=== PATIENT | male | born 1990 | race Two or more races ===

== ENCOUNTER 2017-04-03 03:11 | Emergency (ER) | payer BC ==
[~2017-04-03] VITALS: Ht 170.2 cm; Wt 68.9 kg
[2017-04-03] MEDS ORDERED: KETOROLAC TROMETHAMINE 60 MG/2 ML INJ. IM ONE (04:15)
[2017-04-03 04:30] VITALS: BP 127/71
--- NOTE | 2017-04-03 04:37 | PHYS DOC ---
Past Medical History Past Medical History: No Pertinent History Past Surgical History: No Surgical History Alcohol Use: Occasionally Drug Use: None Adult General Chief Complaint Chief Complaint: CHEST PAIN HPI HPI 26 yo male presenting with some mild substernal chest pain that he noted after getting into an argument with a significant other. He states he has had one other episode like this recently that fully resolved. He denies any history of premature cardiac in his family. He is a smoker but denies any other health problems. Currently he states his pain has improved significantly upon arrival. He does not appear to be any acute distress upon initial presentation. Review of Systems Review of Systems Constitutional: Denies fever or chills [] Eyes: Denies change in visual acuity, redness, or eye pain [] HENT: Denies nasal congestion or sore throat [] Respiratory: Denies cough or shortness of breath [] Cardiovascular: No additional information not addressed in HPI [] GI: Denies abdominal pain, nausea, vomiting, bloody stools or diarrhea [] : Denies dysuria or hematuria [] Musculoskeletal: Denies back pain or joint pain [] Integument: Denies rash or skin lesions [] Neurologic: Denies headache, focal weakness or sensory changes [] Endocrine: Denies polyuria or polydipsia [] Current Medications Current Medications Current Medications Medications (Trade) Dose Ordered Sig/[facility] Start Time Stop Time Status Last Admin Dose Admin Ketorolac Tromethamine (Toradol Im) 60 mg 1X ONCE 04/03/17 04:15 04/03/17 04:16 DC 04/03/17 04:14 60 MG Allergies Allergies Allergies Coded Allergies Type Severity Reaction Last Updated Verified No Known Drug Allergies 04/03/17 No Physical Exam Physical Exam Constitutional: Well developed, well nourished, no acute distress, non-toxic appearance. [] HENT: Normocephalic, atraumatic, bilateral external ears normal, oropharynx moist, no oral exudates, nose normal. [] Eyes: PERRLA, EOMI, conjunctiva normal, no discharge. [] Neck: Normal range of motion, no tenderness, supple, no stridor. [] Cardiovascular:Heart rate regular rhythm, no murmur [] Lungs & Thorax: Bilateral breath sounds clear to auscultation [] Abdomen: Bowel sounds normal, soft, no tenderness, no masses, no pulsatile masses. [] Skin: Warm, dry, no erythema, no rash. [] Back: No tenderness, no CVA tenderness. [] Extremities: No tenderness, no cyanosis, no clubbing, ROM intact, no edema. [] Neurologic: Alert and oriented X 3, normal motor function, normal sensory function, no focal deficits noted. [] Psychologic: Affect normal, judgement normal, mood normal. [] Current Patient Data Vital Signs Vital Signs Date Time Temp Pulse Resp B/P (MAP) Pulse Ox O2 Delivery O2 Flow Rate FiO2 04/03/17 04:30 60 127/71 (89) 97 Room Air 04/03/17 03:17 98.3 20 98.3 Lab Values Laboratory Tests Test 04/03/17 03:40 Troponin I Quantitative < 0.017 ng/mL (0.000-0.055) EKG EKG EKG as interpreted by me shows sinus rhythm with a rate of 69 bpm. There is no acute injury pattern seen. Intervals are normal. Radiology/Procedures Radiology/Procedures Indication: Chest pain. Time of exam 0330 hours. FINDINGS: The heart size is normal. The lungs are clear. No pleural effusion or pneumothorax is identified. The pulmonary vascularity is normal. IMPRESSION: No acute abnormality detected. Course & Med Decision Making Course & Med Decision Making Pertinent Labs and Imaging studies reviewed. (See chart for details) 26 yo male who presents with chest pain had a negative EKG, chest film, and a negative set of cardiac enzymes. I deem him to be low risk for cardiac disease with a BRYAN score of 0. Return precautions were provided and I counseled the patient to follow closely with his primary care doctor in the next several days and to abstain from smoking. Dragon Disclaimer Dragon Disclaimer This electronic medical record was generated, in whole or in part, using a voice recognition dictation system. Departure Departure Impression: Primary Impression: Chest pain Disposition: 01 HOME, SELF-CARE Admitting Physician: Other Condition: STABLE Patient Instructions: Chest Pain (Nonspecific), [id number] Additional Instructions: Please follow up with your primary doctor in the next 2-3 days regarding your chest pain. Return to the ER if you develop any worsening of your symptoms. HERNANDEZ RODRÍGUEZ DO Apr 03, 2017 04:37
--- NOTE | 2017-04-03 07:32 | RAD ---
Indication: Chest pain. Time of exam 0330 hours. FINDINGS: The heart size is normal. The lungs are clear. No pleural effusion or pneumothorax is identified. The pulmonary vascularity is normal. IMPRESSION: No acute abnormality detected.
--- NOTE | 2017-04-03 11:29 | EKG ---
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
== END 2017-04-03 04:47 | disposition home or self-care (01) ==
LOC: ER 03:11
DX: R07.2 Precordial pain (principal); F17.200 Nicotine dependence, unspecified, uncomplicated
CPT/HCPCS: 36415; 71010; 84484; 93005; 96372; 99285; J1885

== ENCOUNTER 2017-05-16 23:15 | Emergency (ER) | payer BC ==
[~2017-05-16] VITALS: Ht 170.2 cm; Wt 68.9 kg
[2017-05-16 23:28] VITALS: BP 136/95
--- NOTE | 2017-05-17 00:12 | ED.ADGEN ---
Past Medical History Past Medical History: Hypertension Past Surgical History: No Surgical History Alcohol Use: Sober Drug Use: None Adult General Chief Complaint Chief Complaint: HEADACHE HPI HPI Patient is a 26 year old man, history of hypertension, was previously prescribed lisinopril, who presents to the emergency department with a complaint of insomnia and anxiety. Patient states that he was seen at a clinic last month, that time he was prescribed antihypertensive medication. He states blood pressure had been 170s over 1 teens at that time, and he was prescribed once daily lisinopril. He states he does not have a doctor, but he was set up to see a early education teacher, states his appointment is tomorrow morning. Patient states that he tried become healthier after this diagnosis, that he started exercising, and he quit drinking and smoking marijuana 3 weeks ago. Patient states he had been drinking about a 6 pack to a 12 pack of beer daily. He states that he did not have any complications when he stopped drinking and smoking. He states however over the past several weeks he has been feeling "anxious", he states that he initially thought it might be due to lisinopril, any stopped taking lisinopril about a week ago, states that he would feel "good when I woke up in the morning, but started to feel depressed once I started looking outside". He states he thought it might be the medication causing these issues, "I would start to feel depressed about 20 minutes after taking the medication". Currently his blood pressure is 130s over 90s in the emergency department, heart rate is in the 80s, oxygen saturation is 98% room air, respiratory rate is 18 and unlabored. He states that he is experiencing headache on the top of his head, and occasional tingling in his hands. He states that he does feel anxious and has been able to get a good night sleep for the past 3 days. 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 States he has not had any ingestions or take any medications prior to coming to the ED. He denies any suicidal or homicidal ideation, any auditory or visual hallucinations. He states that he is looking for help with his anxiety and his insomnia. At this point has not established a primary care provider. Review of Systems Review of Systems Constitutional: Denies fever or chills. [] Eyes: Denies change in visual acuity. [] HENT: Denies nasal congestion or sore throat. [] Respiratory: Denies cough or shortness of breath. [] Cardiovascular: Denies chest pain or edema. [] GI: Denies abdominal pain, nausea, vomiting, bloody stools or diarrhea. [] : Denies dysuria. [] Musculoskeletal: Denies back pain or joint pain. [] Integument: Denies rash. [] Neurologic: Denies headache, focal weakness or sensory changes. [] Endocrine: Denies polyuria or polydipsia. [] Lymphatic: Denies swollen glands. [] Psychiatric: Depression and anxiety. No SI or HI. No ingestions or self- injurious behavior. Allergies Allergies Allergies Coded Allergies Type Severity Reaction Last Updated Verified No Known Drug Allergies 04/03/17 No Physical Exam Physical Exam Constitutional: Well developed, well nourished, no acute distress, non-toxic appearance. [] HENT: Normocephalic, atraumatic, bilateral external ears normal, oropharynx moist, no oral exudates, nose normal. [] Eyes: PERRLA, EOMI, conjunctiva normal, no discharge. [] Neck: Normal range of motion, no tenderness, supple, no stridor. [] Cardiovascular:Heart rate regular rhythm, no murmur, S1, S2, no rubs or gallops. [] Lungs & Thorax: Bilateral breath sounds clear to auscultation , no wheezing, rhonchi, rales. No chest or crepitus or tenderness. [] Abdomen: Bowel sounds normal, soft, no tenderness, no masses, no pulsatile masses. [] Skin: Warm, dry, no erythema, no rash. [] Back: No tenderness, no CVA tenderness. [] Extremities: No tenderness, no cyanosis, no clubbing, ROM intact, no edema. [] Neurologic: Alert and oriented X 3, normal motor function, normal sensory function, no focal deficits noted. [] Psychologic: Affect normal, judgement normal, mood normal. [] Current Patient Data Vital Signs Vital Signs Date Time Temp Pulse Resp B/P (MAP) Pulse Ox O2 Delivery O2 Flow Rate FiO2 05/16/17 23:28 98.1 77 17 136/95 (109) 100 98.1 EKG EKG ECG: Rhythm strip: Heart rate 80 bpm, sinus rhythm, no ectopy. As interpreted by me. [] Radiology/Procedures Radiology/Procedures Not indicated.[] Course & Med Decision Making Course & Med Decision Making Pertinent Labs and Imaging studies reviewed. (See chart for details) Patient well-appearing, with vital signs within normal limits in the ED. He states he is frustrated with anxiety that he is experiencing in the insomnia which is making her feel more anxious. However he is not exhibiting any thoughts of suicidal or homicidal ideation, or other concerning findings. He denies any headache currently, or any other complaints. I did discuss with the patient that we could proceed with some basic medical evaluation, but that in terms of treating insomnia and anxiety we are limited in the emergency department. Patient states that he understands the limitations, he did drive himself to the emergency department today, and does not have anyone to pick him up, therefore he did not receive any agents in the ED. He states he tried] Mild T at home without relief. After lengthy discussion at bedside, patient states he 's most interested in obtaining resources for follow-up for additional evaluation, and we did discuss use of the [facility] resources, there is no indication that would require emergent evaluation today in the ED. Patient states that he would like to be discharged at this time, with plan to follow-up at his early education teacher's appointment tomorrow morning for additional evaluation of his blood pressure, which at this time as stated is 130s over 80s , and that he will follow-up with the resources given to him in the ED, and will return to the ED if any new or concerning symptoms develop. Patient discharged home in stable condition with plan as above. Dragon Disclaimer Dragon Disclaimer This electronic medical record was generated, in whole or in part, using a voice recognition dictation system. Departure Impression: Primary Impression: Insomnia Disposition: 01 HOME, SELF-CARE Condition: STABLE KATE BARRETO DO May 17, 2017 00:12
== END 2017-05-17 00:15 | disposition home or self-care (01) ==
LOC: ER 23:15
DX: G47.00 Insomnia, unspecified (principal); F41.9 Anxiety disorder, unspecified; I10 Essential (primary) hypertension; F12.10 Cannabis abuse, uncomplicated
CPT/HCPCS: 99281

== ENCOUNTER 2018-04-24 16:41 | Emergency (ER) | payer SELFPAY, BC ==
[2018-04-24] MEDS: TETRACAINE 0.5% OPHTH SOLUTION 4ML BOTTLE. OS (17:02)
[2018-04-24] MEDS: FLUORESCEIN OPHTH TEST STRIP. OS (17:03)
== END 2018-04-24 17:36 | disposition home or self-care (01) ==
LOC: ER 16:41
DX: S05.02XA Injury of conjunctiva and corneal abrasion without foreign body, left eye, initial encounter (principal); I10 Essential (primary) hypertension; X58.XXXA Exposure to other specified factors, initial encounter; Y93.89 Activity, other specified; Y92.89 Other specified places as the place of occurrence of the external cause; Y99.8 Other external cause status
CPT/HCPCS: 99283

== ENCOUNTER 2020-07-22 13:21 | Emergency (ER) | payer OTHER ==
[~2020-07-22] VITALS: Ht 170.2 cm; Wt 73.4 kg
[~2020-07-22 13:21] MED LIST: ERYT1OIN6 OP; HYDR-3164 PO
--- NOTE | 2020-07-22 14:07 | PHYS DOC ---
Past Medical History Past Medical History: Hypertension Past Surgical History: No Surgical History Smoking Status: Former Smoker Additional Information: quit smoking April 2017 Alcohol Use: Sober Additional Information: quit drinking April 2017 Drug Use: None General Adult EDM: Chief Complaint: CHEST PAIN HPI: HPI: Patient is a 29 year old male who presented to ER today for evaluation of ep igastric abdominal pain off and on for several years but become more intense last week. Patient described the pain burning sensation. Patient denied any history of blood clot disorder, no history of coronary disease, no history of diabetic. Patient denies any cough or fever. Patient denies drinking alcohol, denies any bloody stools or dark stool. Patient denies any weight gain or weight loss recently. Patient says she is not on any NSAIDs. Review of Systems: Review of Systems: Constitutional: Denies fever or chills. [] Eyes: Denies change in visual acuity. [] HENT: Denies nasal congestion or sore throat. [] Respiratory: Denies cough or shortness of breath. [] Cardiovascular: Denies chest pain or edema. [] GI: Positive for abdominal pain, no nausea vomiting, no diarrhea : Denies dysuria. [] Musculoskeletal: Denies back pain or joint pain. [] Integument: Denies rash. [] Neurologic: Denies headache, focal weakness or sensory changes. [] Endocrine: Denies polyuria or polydipsia. [] Lymphatic: Denies swollen glands. [] Psychiatric: Denies depression or anxiety. [] Heart Score: HEART Score for Chest Pain: HEART Score for Chest Pain Response (Comments) Value History Slighlty/Non-Suspicious 0 ECG Normal 0 Age < 45 0 Risk Factors No Risk Factors 0 Troponin < Normal Limit 0 Total 0 Risk Factors: Risk Factors: DM, Current or recent (<one month) smoker, HTN, HLP, family history of CAD, obesity. Risk Scores: Score 0 - 3: 2.5% MACE over next 6 weeks - Discharge Home Score 4 - 6: 20.3% MACE over next 6 weeks - Admit for Clinical Observation Score 7 - 10: 72.7% MACE over next 6 weeks - Early Invasive Strategies Allergies: Allergies: Allergies Coded Allergies Type Severity Reaction Last Updated Verified No Known Drug Allergies 04/03/17 No Physical Exam: PE: Constitutional: Well developed, well nourished, no acute distress, non-toxic appearance. [] HENT: Normocephalic, atraumatic, bilateral external ears normal, oropharynx moist, no oral exudates, nose normal. [] Eyes: PERRLA, EOMI, conjunctiva normal, no discharge. [] Neck: Normal range of motion, no tenderness, supple, no stridor. [] Cardiovascular:Heart rate regular rhythm, no murmur [] Lungs & Thorax: Bilateral breath sounds clear to auscultation [] Abdomen: Bowel sounds normal, soft, There is tenderness to palpation in epigastric area, no masses, no pulsatile masses. [] Skin: Warm, dry, no erythema, no rash. [] Back: No tenderness, no CVA tenderness. [] Extremities: No tenderness, no cyanosis, no clubbing, ROM intact, no edema. [] Neurologic: Alert and oriented X 3, normal motor function, normal sensory function, no focal deficits noted. [] Psychologic: Affect normal, judgement normal, mood normal. [] Current Patient Data: Vital Signs: Vital Signs Date Time Temp Pulse Resp B/P (MAP) Pulse Ox O2 Delivery O2 Flow Rate FiO2 07/22/20 13:25 98.2 93 16 142/91 (108) 96 Room Air 98.2 EKG: EKG: EKG was done at 1328, heart rate of 81 bpm, sinus rhythm, no ST segment elevation. [] Radiology/Procedures: Radiology/Procedures: [][facility] [address] [place] [address] IMAGING REPORT Signed PATIENT: ERIC HENSLEYCOUNT: [id number] : 1990 LOCATION: ER AGE: 29 SEX: M EXAM STATUS: REG ER ORD. PHYSICIAN: NAVID VILLATORO DO REASON: abdominal pain PROCEDURE: CT ABD PELV W/ IV CONTRST ONLY CT abdomen and pelvis with contrast PQRS statement: CT scans at this facility use dose reduction including either automated exposure control, iterative reconstructions, and /or weight based radiation dosing via mA and kV modification when appropriate to reduce radiation dose to as low as reasonably achievable. Contrast: 75 mL Omnipaque 300 intravenous contrast. HISTORY: Abdominal pain. Abdomen findings: Lung bases and bones are unremarkable. Hypodense liver likely fatty. Gallbladder, pancreas, spleen, kidneys and adrenal glands are unremarkable. No abdominal fluid or adenopathy. Appendix is negative. No obstruction or inflammatory changes in GI tract. Lung bases and bones are unremarkable. Pelvis findings: No fluid or adenopathy. Bladder, prostate, rectum and bones are unremarkable. IMPRESSION: No acute process. Appendix is negative. Electronically signed by: Hima Hyde MD (07/22/2020 3:43 PM) [id number] DICTATED and SIGNED BY: HIMA HYDE MD DATE: 07/22/20 1543 Course & Med Decision Making: Course & Med Decision Making Pertinent Labs and Imaging studies reviewed. (See chart for details) [] Dragon Disclaimer: Dragon Disclaimer: This electronic medical record was generated, in whole or in part, using a voice recognition dictation system. Departure Departure Impression: Primary Impression: Gastritis Disposition: 01 HOME, SELF-CARE Condition: IMPROVED Referrals: NO PCP (PCP) Please follow up with your doctor next week for reevaluation Patient Instructions: Gastritis, Adult Additional Instructions: [facility] [address] [place] [address] [facility] [address] [place] [address] [facility] [address] [facility] [place] [address] [facility] [address] [place] [address] [facility] [address] [place] [address] [facility] [address] [place] [address] [facility] [address] [place] [address] [employer] [facility] [address] [place] [address] [facility] [employer] [facility] [address] [place] [address] [facility] Department [address] [place] [address] Scripts Omeprazole Magnesium (PRILOSEC OTC) 20 Mg Tablet. 1 TAB PO DAILY for 30 Days, #30 TAB 0 Refills Prov: NAVID VILLATORO DO 07/22/20 Sucralfate (CARAFATE) 1 Gm Tablet 1 TAB PO QID for 14 Days, #56 TAB 0 Refills Prov: NAVID VILLATORO DO 07/22/20 Justicifation of Admission Dx: Justifications for Admission: Justification of Admission Dx: N/A NAVID VILLATORO DO Jul 22, 2020 14:07
[2020-07-22 14:09] LABS: BASO % 0 % (0-3); EOS # 0.1 x10^3/uL (0.0-0.7); EOS % 1 % (0-3); HEMATOCRIT 52.4 % (39.0-53.0); HEMOGLOBIN 18.3 g/dL (13.0-17.5); LYMPH # 1.8 x10^3/uL (1.0-4.8); LYMPH % 32 % (24-48); MEAN CORPUSCULAR HEMOGLOBIN 31 pg (25-35); MEAN CORPUSCULAR HGB CONC 35 g/dL (31-37); MEAN CORPUSCULAR VOLUME 89 fL (79-100); MONO # 0.2 x10^3/uL (0.0-1.1); MONO % 4 % (0-9); NEUT # 3.5 x10^3/uL (1.8-7.7); NEUT % 62 % (31-73); PLATELET COUNT 195 x10^3/uL (140-400); RED BLOOD COUNT 5.87 x10^6/uL (4.30-5.70); RED CELL DISTRIBUTION WIDTH 12.6 % (11.5-14.5); WHITE BLOOD COUNT 5.7 x10^3/uL (4.0-11.0)
[2020-07-22 14:11] LABS: BILIRUBIN,URINE NEGATIVE (NEG); COLOR,URINE YELLOW; NITRITE,URINE NEGATIVE (NEG); PH,URINE 7.5 (<5.0-8.0); PROTEIN,URINE NEGATIVE (NEG-TRACE); UROBILINOGEN,URINE 0.2 mg/dL (0.2 mg/dL)
[2020-07-22 14:12] LABS: CLARITY,URINE CLEAR
[2020-07-22] MEDS ORDERED: LIDO:MAALOX 1:1 20 ML SINGLE DOSE. SWSW ONE (14:15)
[2020-07-22] MEDS ORDERED: FAMOTIDINE 20 MG/2 ML VIAL IVP ONE (14:15)
[2020-07-22 14:19] LABS: PROTHROMBIN TIME PATIENT 12.4 SEC (11.7-14.0)
[2020-07-22 14:25] LABS: BACTERIA,URINE 0 /HPF (0-FEW); RBC,URINE OCC /HPF (0-2); SQUAMOUS EPITHELIAL CELL,UR FEW /LPF; WBC,URINE OCC /HPF (0-4)
[2020-07-22 14:31] LABS: CALCIUM 9.2 mg/dL (8.5-10.1); CREATININE 0.8 mg/dL (0.7-1.3); GFR 112.8; POTASSIUM 3.6 mmol/L (3.5-5.1)
[2020-07-22 14:35] LABS: ALBUMIN 4.1 g/dL (3.4-5.0); ALBUMIN/GLOBULIN RATIO 1.1 (1.0-1.7); TOTAL BILIRUBIN 0.5 mg/dL (0.2-1.0); TOTAL PROTEIN 7.7 g/dL (6.4-8.2)
[2020-07-22] MEDS ORDERED: CONTRAST GIVEN. MC PRN (15:00)
[2020-07-22] MEDS ORDERED: IOHEXOL 300 MG/ML 100ML VIAL. IV ONE (15:00)
--- NOTE | 2020-07-22 15:46 | RAD ---
CT abdomen and pelvis with contrast PQRS statement: CT scans at this facility use dose reduction including either automated exposure control, iterative reconstructions, and /or weight based radiation dosing via mA and kV modification when appropriate to reduce radiation dose to as low as reasonably achievable. Contrast: 75 mL Omnipaque 300 intravenous contrast. HISTORY: Abdominal pain. Abdomen findings: Lung bases and bones are unremarkable. Hypodense liver likely fatty. Gallbladder, pancreas, spleen, kidneys and adrenal glands are unremarkable. No abdominal fluid or adenopathy. Appendix is negative. No obstruction or inflammatory changes in GI tract. Lung bases and bones are unremarkable. Pelvis findings: No fluid or adenopathy. Bladder, prostate, rectum and bones are unremarkable. IMPRESSION: No acute process. Appendix is negative. Electronically signed by: Hardik Hyde MD (07/22/2020 3:43 PM) [id number]
[2020-07-22] MEDS ORDERED: SUCR1TAB35 PO (15:52)
[2020-07-22] MEDS ORDERED: OMEP20TA63 PO (15:52)
[2020-07-22 16:00] VITALS: BP 141/90
--- NOTE | 2020-07-22 18:37 | EKG ---
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
== END 2020-07-22 16:06 | disposition home or self-care (01) ==
LOC: ER 13:21
DX: K29.70 Gastritis, unspecified, without bleeding (principal); R10.13 Epigastric pain; R20.8 Other disturbances of skin sensation; I10 Essential (primary) hypertension; Z87.891 Personal history of nicotine dependence
CPT/HCPCS: 36415; 74177; 80053; 81001; 83690; 84484; 85025; 85610; 85730; 93005; 96374; 99285; J3490; Q9967